=== PATIENT | female | born 1980 | race American Indian/Alaskan Native ===

== ENCOUNTER 2018-12-12 13:54 | Emergency (ER) | payer BC ==
--- NOTE | 2018-12-12 14:02 | Emergency Department Report ---
Blank Doc - Documentation Documentation: This is a 38-year-old female that presents with epigastric abdominal pain with nausea. This initial assessment/diagnostic orders/clinical plan/treatment(s) is/are subject to change based on patient's health status, clinical progression and re- assessment by fellow clinical providers in the ED. Further treatment and workup at subsequent clinical providers discretion. Patient/guardians urged not to elope from the ED as their condition may be serious if not clinically assessed and managed. Initial orders include: 1- Patient sent to [facility] for further evaluation and treatment 2- UA 3- labs
[2018-12-12 14:34] LABS: Basophils % (Auto) 0.5 % (0.0-1.8); Eosinophils % (Auto) 0.3 % (0.0-4.3); Hematocrit 35.1 % (30.3-42.9); Hemoglobin 11.2 gm/dl (10.1-14.3); Mean Corpuscular HGB Conc 32 % (30-34); Mean Corpuscular Volume 76 fl (79-97); Monocytes # (Auto) 0.5 K/mm3 (0.0-0.8); Monocytes % (Auto) 7.8 % (0.0-7.3); Platelet Count 250 K/mm3 (140-440); Red Blood Count 4.61 M/mm3 (3.65-5.03); Red Cell Distribution Width 17.2 % (13.2-15.2)
[2018-12-12 14:58] LABS: Alanine Aminotransferase 13 units/L (7-56); Albumin 4.1 g/dL (3.9-5); BUN/Creatinine Ratio 9; Blood Urea Nitrogen 7 mg/dL (7-17); Calcium 9.1 mg/dL (8.4-10.2); Hemolysis Index 1
[2018-12-12 15:03] LABS: Bilirubin,Direct < 0.2 mg/dL (0-0.2)
[2018-12-12 15:13] LABS: Bacteria,Urine 1+ /HPF (Negative); Bilirubin,Urine NEG (Negative); Blood,Urine SM (Negative); Color,Urine Colorless (Yellow); Mucus,Urine FEW /HPF; Protein,Urine <15 mg/dL mg/dL (Negative); Urobilinogen,Urine < 2.0 mg/dL (<2.0)
--- NOTE | 2018-12-12 15:35 | Emergency Department Report ---
Vomiting/Diarrhea - HPI Chief Complaint: Abdominal Pain Stated Complaint: UPPER ABD PAIN Time Seen by Provider: 12/12/18 14:01 Severity: mild Nausea/Vomiting Severity: None Diarrhea Severity: None Symptoms: Yes Able to Tolerate Fluids, No Watery Diarrhea, No Bloody diarrhea, No Fever, No Recent Unusual Foods, No Recent Untreated Water, No Recent use of Antibiotics, No Family w/ Similar Symptoms, No Contacts w/ Similar Symptoms, No Rash, No Hematuria, No Recent URI Symptoms Other History: Jarrell is a 38-year-old female who presents his she has a history of left kidney cancer but she follows up with the front chest. She presents today complaining of left-sided back pain with abdominal pain and some nausea. Patient states that her delinquent tax collection assistant is new so he is unable to follow up with her diagnosis. Patient denies vomiting, fever, chills, dysuria, vaginal discharge or vaginal bleeding. ED Review of Systems ROS: Stated complaint: UPPER ABD PAIN Other details as noted in HPI Comment: All other systems reviewed and negative ED Past Medical Hx - Past Medical History Previous Medical History?: Yes Additional medical history: Kidney CA, ectopic - Surgical History Past Surgical History?: Yes Additional Surgical History: Ectopic - Social History Smoking Status: Never Smoker Substance Use Type: None - Medications Home Medications: Home Medications Medication Instructions Recorded Confirmed Last Taken Type traMADol [Ultram 50 MG tab] 50 mg PO Q6HR PRN #20 tablet 12/12/18 Unknown Rx Vomiting Diarrhea Exam - Exam General: Vital signs noted. No distress. Alert and acting appropriately. HEENT: Yes Moist Mucous Membranes, No Pharyngeal Erythema, No Pharyngeal Exudates, No Rhinorrhea, No Conjuctival Injection, No Frontal Tenderness, No Maxillary Tenderness Neck: No Adenopathy, No Rigidity Lungs: Yes Clear Lung Sounds, Yes Good Air Exchange, No Wheezes, No Stridor, No Cough, No Nasal Flaring, No Retractions, No Use of Accessory Muscles Heart exam: Regular: Yes, Murmur: No, Tachycardia: No Abdomen: Tenderness: No, Peritoneal Signs: No, Distention: No, Hyperactive Bowel sounds: No Skin exam: Rash: No, Edema: No, Normal turgor: Yes Neurologic: Alert and oriented, no deficits. Musculoskeletal: Unremarkable. ED Course Vital Signs 12/12/18 14:02 Temperature 98.9 F Pulse Rate 69 Respiratory 18 Rate Blood Pressure 150/86 O2 Sat by Pulse 100 Oximetry ED Medical Decision Making - Lab Data Result diagrams: 12/12/18 14:12 12/12/18 14:12 Temp Pulse Resp BP Pulse Ox 98.9 F 69 18 150/86 100 12/12/18 14:02 12/12/18 14:02 12/12/18 16:02 12/12/18 14:02 12/12/18 14:02 Laboratory Last Values WBC 5.7 K/mm3 (4.5-11.0) 12/12/18 14:12 RBC 4.61 M/mm3 (3.65-5.03) 12/12/18 14:12 Hgb 11.2 gm/dl (10.1-14.3) 12/12/18 14:12 Hct 35.1 % (30.3-42.9) 12/12/18 14:12 MCV 76 fl (79-97) L 12/12/18 14:12 MCH 24 pg (28-32) L 12/12/18 14:12 MCHC 32 % (30-34) 12/12/18 14:12 RDW 17.2 % (13.2-15.2) H 12/12/18 14:12 Plt Count 250 K/mm3 (140-440) 12/12/18 14:12 Lymph % (Auto) 17.0 % (13.4-35.0) 12/12/18 14:12 [place] % (Auto) 7.8 % (0.0-7.3) H 12/12/18 14:12 Eos % (Auto) 0.3 % (0.0-4.3) 12/12/18 14:12 Baso % (Auto) 0.5 % (0.0-1.8) 12/12/18 14:12 Lymph # 1.0 K/mm3 (1.2-5.4) L 12/12/18 14:12 [place] # 0.5 K/mm3 (0.0-0.8) 12/12/18 14:12 Eos # 0.0 K/mm3 (0.0-0.4) 12/12/18 14:12 Baso # 0.0 K/mm3 (0.0-0.1) 12/12/18 14:12 Seg Neutrophils % 74.4 % (40.0-70.0) H 12/12/18 14:12 Seg Neutrophils # 4.3 K/mm3 (1.8-7.7) 12/12/18 14:12 Sodium 138 mmol/L (137-145) 12/12/18 14:12 Potassium 3.5 mmol/L (3.6-5.0) L 12/12/18 14:12 Chloride 101.7 mmol/L (98-107) 12/12/18 14:12 Carbon Dioxide 26 mmol/L (22-30) 12/12/18 14:12 Anion Gap 14 mmol/L 12/12/18 14:12 BUN 7 mg/dL (7-17) 12/12/18 14:12 Creatinine 0.8 mg/dL (0.7-1.2) 12/12/18 14:12 Estimated GFR > 60 ml/min 12/12/18 14:12 BUN/Creatinine Ratio 9 % 12/12/18 14:12 Glucose 87 mg/dL (65-100) 12/12/18 14:12 Calcium 9.1 mg/dL (8.4-10.2) 12/12/18 14:12 Total Bilirubin 0.30 mg/dL (0.1-1.2) 12/12/18 14:12 Direct Bilirubin < 0.2 mg/dL (0-0.2) 12/12/18 14:12 Indirect Bilirubin 0.1 mg/dL 12/12/18 14:12 AST 19 units/L (5-40) 12/12/18 14:12 ALT 13 units/L (7-56) 12/12/18 14:12 Alkaline Phosphatase 63 units/L (35-129) 12/12/18 14:12 Total Protein 7.6 g/dL (6.3-8.2) 12/12/18 14:12 Albumin 4.1 g/dL (3.9-5) 12/12/18 14:12 Albumin/Globulin Ratio 1.2 % 12/12/18 14:12 Lipase 29 units/L (13-60) 12/12/18 14:12 HCG, Qual Negative (Negative) 12/12/18 14:12 Urine Color Colorless (Yellow) 12/12/18 14:23 Urine Turbidity Clear (Clear) 12/12/18 14:23 Urine pH 7.0 (5.0-7.0) 12/12/18 14:23 Ur Specific [place] 1.004 (1.003-1.030) 12/12/18 14:23 Urine Protein <15 mg/dl mg/dL (Negative) 12/12/18 14:23 Urine Glucose (UA) Neg mg/dL (Negative) 12/12/18 14:23 Urine Ketones Neg mg/dL (Negative) 12/12/18 14:23 Urine Blood Sm (Negative) 12/12/18 14:23 Urine Nitrite Neg (Negative) 12/12/18 14:23 Urine Bilirubin Neg (Negative) 12/12/18 14:23 Urine Urobilinogen < 2.0 mg/dL (<2.0) 12/12/18 14:23 Ur Leukocyte Esterase Neg (Negative) 12/12/18 14:23 Urine WBC (Auto) 1.0 /HPF (0.0-6.0) 12/12/18 14:23 Urine RBC (Auto) 1.0 /HPF (0.0-6.0) 12/12/18 14:23 U Epithel Cells (Auto) 4.0 /HPF (0-13.0) 12/12/18 14:23 Urine Bacteria (Auto) 1+ /HPF (Negative) 12/12/18 14:23 Urine Mucus Few /HPF 12/12/18 14:23 - Medical Decision Making 38-year-old female presents with abdominal pain stating that she is has been d iagnosed with kidney cancer in 2014 Discussed with the patient that this is a chronic issue than his seen by a delinquent tax collection assistant. All labs are within normal limits. white count, urinalysis was negative. Kidney functions are normal Discussed with patient to follow-up with her delinquent tax collection assistant and she is not satisfied with given her referrals for second opinion delinquent tax collection assistant Abdomen was nontender. Patient is in no acute distress. Vital signs are normal Critical care attestation.: If time is entered above; I have spent that time in minutes in the direct care of this critically ill patient, excluding procedure time. ED Disposition Clinical Impression: Abdominal pain Disposition: DC-01 TO HOME OR SELFCARE Is pt being admited?: No Does the pt Need Aspirin: No Condition: Stable Instructions: Chronic Kidney Disease (ED), Abdominal Pain (ED) Additional Instructions: Make sure to follow up with the primary care physician as discussed. Referrals for delinquent tax collection assistant having given to you. Take all your medications as you've been prescribed. If you have any worsening symptoms or develop new symptoms please return to ED immediately. Prescriptions: traMADol [Ultram 50 MG tab] 50 mg PO Q6HR PRN #20 tablet PRN Reason: Pain Referrals: MAREBLLA PINTOFORT MCKAVETT MD SHEREE [Primary Care Provider] - 3-5 Days KHARI RABAGO MD [Staff Physician] - 3-5 Days [facility] [Provider Group] - 3-5 Days [facility] [Provider Group] - 3-5 Days Forms: Accompanied Note, Work/School Release Form(ED) Time of Disposition: 16:29
[2018-12-12] MEDS ORDERED: NORCO 5/325 PO ONE (15:51)
[2018-12-12 16:51] VITALS: BP 142/90
== END 2018-12-12 16:50 | disposition home or self-care (01) ==
LOC: ED 13:54
DX: R10.9 Unspecified abdominal pain (principal); M54.9 Dorsalgia, unspecified; R11.0 Nausea
CPT/HCPCS: 36415; 80048; 80076; 81001; 83690; 84703; 85025

== ENCOUNTER 2019-04-01 14:39 | Outpatient (CLI) | payer BC, OTHER | END 2019-04-01 14:40 | disposition home or self-care (01) | LOC: LABHHL 14:39 | PROVIDERS: ATTEND Surgery | DX: N63.13 Unspecified lump in the right breast, lower outer quadrant (principal) | CPT/HCPCS: 88305; 88341; 88342 ==

== ENCOUNTER 2020-01-29 22:08 | Emergency (ER) | payer OTHER ==
[2020-01-29 23:01] LABS: Basophils % (Auto) 0.7 % (0.0-1.8); Eosinophils # (Auto) 0.1 K/mm3 (0.0-0.4); Eosinophils % (Auto) 1.6 % (0.0-4.3); Hematocrit 38.8 % (30.3-42.9); Hemoglobin 12.7 gm/dl (10.1-14.3); Lymphocytes # (Auto) 1.9 K/mm3 (1.2-5.4); Lymphocytes % (Auto) 30.6 % (13.4-35.0); Mean Corpuscular HGB Conc 33 % (30-34); Mean Corpuscular Volume 82 fl (79-97); Monocytes # (Auto) 0.5 K/mm3 (0.0-0.8); Monocytes % (Auto) 8.8 % (0.0-7.3); Platelet Count 269 K/mm3 (140-440); Red Blood Count 4.74 M/mm3 (3.65-5.03)
[2020-01-30] MEDS ORDERED: ACETAMINOPHEN 500 MG TAB PO ONE (00:33)
[2020-01-30 01:18] LABS: Alanine Aminotransferase 17 units/L (7-56); Albumin 4.1 g/dL (3.9-5); BUN/Creatinine Ratio 12; Blood Urea Nitrogen 7 mg/dL (7-17); Calcium 9.2 mg/dL (8.4-10.2); Hemolysis Index 11
[2020-01-30 01:42] LABS: Bilirubin,Urine NEG (Negative); Blood,Urine MOD (Negative); Color,Urine Yellow (Yellow); Protein,Urine <15 mg/dL mg/dL (Negative); Urobilinogen,Urine < 2.0 mg/dL (<2.0)
--- NOTE | 2020-01-30 03:30 | Ultrasound Report ---
Obstetrical ultrasound first trimester INDICATION: Pelvic pain. . FINDINGS: No intrauterine is identified. Uterus measures 11 x 5 x 6 cm. Endometrial thickne ss is about 13 mm. The right ovary is normal. The left ovary contains several complex structures the largest measuring 1.6 cm in diameter that is partially cystic. IMPRESSION: No intrauterine identified. Several mildly complex cystlike structures present within the left ovary, as above. Signer Name: Jackson Frey MD Signed: 01/30/2020 3:26 AM Workstation Name: [id number]
--- NOTE | 2020-01-30 04:02 | Emergency Department Report ---
ED Female HPI - General Chief complaint: Vaginal Bleeding Stated complaint: VAGINAL BLEEDING Source: patient Mode of arrival: Ambulatory Limitations: No Limitations - History of Present Illness Initial comments: Patient is a A2 39-year-old -[place] female who was approximately 9 weeks gestation and who presents to the ED with complaint of acute onset persistent pelvic pain with heavy vaginal bleeding for the last 2 days. Patient states that prior to arrival in the ED the bleeding has been heavy with large blood clots. Patient denies dizziness, syncope, lightheadedness, headache, chest pain, shortness of breath, nausea, vomiting, diarrhea, vaginal discharge, fever, chills, cough, sore throat or low back pain, traumatic injury or heavy lifting and fall. MD Complaint: vaginal bleeding, pelvic pain -: Sudden, days(s) (2) Location: suprapubic, other (vaginal) Radiation: non-radiating Severity: moderate Severity scale (0 -10): 6 Quality: cramping, sharp, aching Consistency: constant Improves with: none Worsens with: none Are you Now?: Yes Associated Symptoms: denies other symptoms, vaginal bleeding, abdominal pain (suprapubic), loss of appetite. denies: vaginal discharge, nausea/vomiting, fever/chills, headaches, dysuria, hematuria, rash, seizure, shortness of breath, syncope, weakness - Related Data Sexually active: Yes : 6 Para: 3 A: 2 Previous Rx's Medication Instructions Recorded Last Taken Type traMADoL [Ultram 50 MG tab] 50 mg PO Q6HR PRN #20 tablet 12/12/18 Unknown Rx Acetaminophen [Tylenol] 500 mg PO Q6HR PRN #30 tablet 01/30/20 Unknown Rx Allergies Allergy/AdvReac Type Severity Reaction Status Date / Time No Known Allergies Allergy Unverified 01/29/20 22:21 ED Review of Systems ROS: Stated complaint: VAGINAL BLEEDING Other details as noted in HPI Constitutional: denies: chills, fever Eyes: denies: eye pain, eye discharge, vision change ENT: denies: ear pain, throat pain Respiratory: denies: cough, shortness of breath, wheezing Cardiovascular: denies: chest pain, palpitations Endocrine: no symptoms reported Gastrointestinal: abdominal pain (suprapubic). denies: nausea, diarrhea Genitourinary: abnormal menses (vaginal bleeding). denies: urgency, dysuria, discharge Musculoskeletal: denies: back pain, joint swelling, arthralgia Skin: denies: rash, lesions Neurological: denies: headache, weakness, paresthesias Psychiatric: denies: anxiety, depression Hematological/Lymphatic: denies: easy bleeding, easy bruising ED Past Medical Hx - Past Medical History Previous Medical History?: No Additional medical history: Kidney CA, ectopic - Surgical History Additional Surgical History: Ectopic - Social History Smoking Status: Never Smoker Substance Use Type: None - Medications Home Medications: Home Medications Medication Instructions Recorded Confirmed Last Taken Type traMADoL [Ultram 50 MG tab] 50 mg PO Q6HR PRN #20 tablet 12/12/18 Unknown Rx Acetaminophen [Tylenol] 500 mg PO Q6HR PRN #30 tablet 01/30/20 Unknown Rx ED Physical Exam - General Limitations: No Limitations General appearance: alert, in no apparent distress - Head Head exam: Present: atraumatic, normocephalic, normal inspection - Eye Eye exam: Present: normal appearance, PERRL Pupils: Present: normal accommodation - ENT ENT exam: Present: normal exam, normal orophraynx, mucous membranes moist, TM's normal bilaterally, normal external ear exam - Neck Neck exam: Present: normal inspection, full ROM. Absent: tenderness, lymphadenopathy - Respiratory Respiratory exam: Present: normal lung sounds bilaterally. Absent: respiratory distress, wheezes, rales, stridor, chest wall tenderness, accessory muscle use, decreased breath sounds, prolonged expiratory - Cardiovascular Cardiovascular Exam: Present: regular rate, normal rhythm, normal heart sounds. Absent: systolic murmur, diastolic murmur, rubs, gallop - GI/Abdominal GI/Abdominal exam: Present: soft, tenderness (suprapubic), normal bowel sounds. Absent: guarding, rebound, hyperactive bowel sounds, hypoactive bowel sounds, organomegaly - Bi-manual exam: Present: other (Pelvic exam deferred, patient requested) - Extremities Exam Extremities exam: Present: normal inspection, full ROM, normal capillary refill - Back Exam Back exam: Present: normal inspection, full ROM. Absent: tenderness, CVA tenderness (R), CVA tenderness (L), muscle spasm, vertebral tenderness - Neurological Exam Neurological exam: Present: alert, oriented X3, CN II-XII intact, normal gait, reflexes normal - Psychiatric Psychiatric exam: Present: normal affect, normal mood - Skin Skin exam: Present: warm, dry, intact, normal color. Absent: rash ED Medical Decision Making - Lab Data Result diagrams: 01/29/20 22:42 01/30/20 00:44 - Radiology Data Radiology results: report reviewed Findings [facility] [address] [place] [address] Ultrasound Report Signed Patient: PATTI ROBLES MR#: [id number] 3 : 1980 Acct:[id number] Age/Sex: 39 / F ADM Date: 01/29/20 Loc: ED Attending Dr: Ordering Physician: JEFFREY PINO Date of Service: 01/30/20 Procedure(s): US OB transvaginal Accession Number(s): [id number] cc: JEFFREY PINO Obstetrical ultrasound first trimester INDICATION: Pelvic pain. . FINDINGS: No intrauterine is identified. Uterus measures 11 x 5 x 6 cm. Endometrial thickness is about 13 mm. The right ovary is normal. The left ovary contains several complex structures the largest measuring 1.6 cm in diameter that is partially cystic. IMPRESSION: No intrauterine identified. Several mildly complex cystlike structures present within the left ovary, as above. Signer Name: Jackson Frey MD Signed: 01/30/2020 3:26 AM Workstation Name: [id number] Transcribed By: SARY Dictated By: Jackson Frey MD Electronically Authenticated By: Jackson Frey MD Signed Date/Time: 01/30/20325 DD/ 3 TD/TT: - Medical Decision Making This is a A2 39-year-old -[place] female who was approximately 9 weeks gestation and who presents to the ED with complaint of acute onset persistent pelvic pain with heavy vaginal bleeding for the last 2 days. Patient states that prior to arrival in the ED the bleeding has been heavy with large blood clots. In the ED, patient is alert and oriented x3 and is not in distress but appears to be in pain. Patient was treated for pain with Tylenol in the ED. Lab test results were reviewed and showed mild hypokalemia of 3.3 mmol/L and hCG quant of 8444. Urinalysis showed significantly large amount of blood with no sign of urinary tract infection. On reevaluation, patient's pain is well controlled with medications. Transvaginal ultrasound showed no intrauterine is identified. Uterus measures 11 x 5 x 6 cm. Endometrial thickness is about 13 mm. The right ovary is normal. The left ovary contains several complex structures the largest measuring 1.6 cm in diameter that is partially cystic. These findings are consistent with spontaneous miscarriage. Patient was discharged home and advised to maintain complete pelvic rest devoid of heavy lifting, strenuous physical activity and was advised to return to the ED or follow-up with her [employer] physician within 48 hours for repeat hCG quant to ascertain the viability of the or complete miscarriage. Patient was advised to take only Tylenol as needed for pain. Patient was advised however to return to the ED immediately if her symptoms get worse. - Differential Diagnosis Threatened miscarriage; spontaneous ; UTI; Subchorionic bleed; Cyst Critical care attestation.: If time is entered above; I have spent that time in minutes in the direct care of this critically ill patient, excluding procedure time. ED Disposition Clinical Impression: Spontaneous miscarriage, Vaginal bleeding in patient after first trimester Abdominal pain in Qualifiers: Trimester: first trimester Qualified Code(s): O26.891 - Other specified p regnancy related conditions, first trimester; R10.9 - Unspecified abdominal pain Disposition: DC- TO HOME OR SELFCARE Is pt being admited?: No Does the pt Need Aspirin: No Condition: Stable Instructions: Spontaneous Miscarriage (ED), Abdominal Pain in (ED) Additional Instructions: Your ultrasound shows no intrauterine at this time. This is likely due to a spontaneous miscarriage. Therefore maintain a complete pelvic rest with no physical or strenuous activities. Take Tylenol as needed for pain and follow-up with your [employer] physician or return to the emergency department in 48 hours for recheck of hCG quant to ascertain the viability of the or confirmed the complete miscarriage. Otherwise return to the ED immediately if the symptoms get worse. Prescriptions: Acetaminophen [Tylenol] 500 mg PO Q6HR PRN #30 tablet PRN Reason: Pain , Severe (7-10) Referrals: ARACELI LOPES MD [Staff Physician] - 2-3 Days Time of Disposition: 04:08 Print Language: SWISS
[2020-01-30 04:33] VITALS: BP 121/80
== END 2020-01-30 04:34 | disposition home or self-care (01) ==
LOC: ED 22:08
DX: O03.9 Complete or unspecified spontaneous abortion without complication (principal); Z98.890 Other specified postprocedural states; Z79.899 Other long term (current) drug therapy; Z3A.09 9 weeks gestation of pregnancy
CPT/HCPCS: 36415; 76801; 76817; 80053; 81001; 84702; 85025; 86900; 86901